=== PATIENT | male | born 1945 ===

== ENCOUNTER 2018-12-31 15:30 | Emergency (ER) | payer MEDICARE, BC ==
[2018-12-31 16:23] VITALS: BP 188/92
--- NOTE | 2018-12-31 16:43 | UC ---
Throat Pain/Nasal Ho HPI - HPI Summary HPI Summary: 73-year-old otherwise healthy moreno presents with 1 week worth of sore throat and nasal congestion. He states that he has been taking nasal decongestant and that his throat feels pretty good today. His neighbors talked him into coming to get checked out. He denies any fever, shakes or chills or joint aches. He' s had no significant cough. His blood pressure was noted to be elevated in triage however he states that he has no history of that. His brother Dr. Suman Nielson is his primary care physician. - History of Current Complaint Chief Complaint: UCRespiratory Stated Complaint: SORE THROAT Time Seen by Provider: 12/31/18 16:04 Hx Obtained From: Patient Pain Intensity: 2 - Allergies/Home Medications Allergies/Adverse Reactions: Allergies Allergy/AdvReac Type Severity Reaction Status Date / Time Penicillins Allergy Rash Verified 12/31/18 15:47 Home Medications: Home Medications NK [No Home Medications Reported] 12/31/18 [History Confirmed 12/31/18] PMH/Surg Hx/FS Hx/Imm Hx Cardiovascular History: Other - Denies hypertension - Surgical History Surgical History: None - Family History Known Family History: Positive: None, Other - father lived to - Social History Occupation: Employed Full-time Alcohol Use: None Substance Use Type: None Smoking Status (MU): Never Smoked Tobacco Review of Systems All Other Systems Reviewed And Are Negative: Yes Constitutional: Negative: Fever Skin: Positive: Negative Eyes: Positive: Negative ENT: Positive: Sore Throat, Nasal Discharge. Negative: Ear Ache, Sinus Congestion, Sinus Pain/Tenderness Respiratory: Negative: Cough Cardiovascular: Positive: Negative Gastrointestinal: Positive: Negative Neurological: Negative: Headache, Weakness, Paresthesia, Numbness Physical Exam Triage Information Reviewed: Yes Appearance: Well-Appearing, No Pain Distress Vital Signs: Initial Vital Signs Temp 98.2 F 12/31/18 15:41 Pulse 67 12/31/18 15:41 Resp 18 12/31/18 15:41 BP 193/91 12/31/18 15:41 Pulse Ox 98 12/31/18 15:41 Vital Signs Reviewed: Yes Eye Exam: Normal ENT: Positive: TMs normal, Other - pharyngeal mucous and mild erythema. Negative: Nasal congestion, Nasal drainage, Tonsillar swelling, Tonsillar exudate Neck: Positive: Nontender, No Lymphadenopathy Respiratory: Positive: Lungs clear Cardiovascular: Positive: RRR Musculoskeletal: Positive: Strength Intact, ROM Intact Neurological: Positive: Alert Skin Exam: Normal Throat Pain/Nasal Course/Dx - Course Course Of Treatment: Rapid Strep: NEG Nurse's notes reviewed. Blood pressure is grossly elevated. This was confirmed with manual blood pressure at 188/92. This may be elevated due to [id number] decongestant medication. He is not sure exactly what he is taking. We attempted to bring his brother who is his physician however he is not currently available. He states he'll follow-up with him today. As for his throat, a strep test was negative. He has minor congestion likely causing sore throat that is worse in the morning. It is very minor today. Have suggested ibuprofen or Tylenol as needed for this. He'll follow closely with his brother for elevated blood pressure. - Differential Dx/Diagnosis Differential Diagnosis/HQI/PQRI: Influenza, Peritonsillar Abscess, Pharyngitis, Sinusitis, Tonsillitis, URI Provider Diagnosis: Elevated blood pressure reading, Acute viral pharyngitis Discharge - Sign-Out/Discharge Documenting (check all that apply): Patient Departure All imaging exams completed and their final reports reviewed: No Studies - Discharge Plan Condition: Improved Disposition: HOME Patient Education Materials: Pharyngitis (ED), Hypertension (ED) Referrals: [facility] [Outside] [facility] [Outside] Additional Instructions: Call Dr Suman Nielson and have him recheck your blood pressure within the week. Ibuprofen can be taken for sore throat. Return with chest pain, difficulty breathing, vision problems, worse or other concerns. The decongestant you are taking may be causing your blood pressure to be elevated. - Billing Disposition and Condition Condition: IMPROVED Disposition: Home
== END 2018-12-31 16:40 | disposition home or self-care (01) ==
LOC: UCEAST 15:30
DX: R03.0 Elevated blood-pressure reading, without diagnosis of hypertension (principal); J02.8 Acute pharyngitis due to other specified organisms; Z88.0 Allergy status to penicillin
CPT/HCPCS: 87651; 99201; G0463